=== PATIENT | female | born 1990 | race African-American/Black ===

== ENCOUNTER 2023-06-02 07:00 | Emergency (ER) | payer MEDICAID, OTHER ==
[~2023-06-02] VITALS: Ht 170.2 cm; Wt 127.5 kg
[2023-06-02 07:45] VITALS: BP 151/86; PULSE 80; RESP 18; TEMP 97.3; O2SAT 96
[2023-06-02] MEDS ORDERED: KETOROLAC TROMETH 60MG/2ML VIAL IM ONE (07:45)
[2023-06-02 07:57] LABS: Urine Bacteria FEW /hpf (None Seen); Urine Blood 1+ /uL (Negative); Urine Clarity HAZY (Clear); Urine Color Yellow (Yellow); Urine Mucus FEW (None Seen); Urine Protein, UAD 1+ (Negative); Urine Specific Gravity 1.025 (1.001-1.035); Urine Urobilinogen Normal (Negative); Urine WBC 4 /hpf (0 - 5); Urine pH 5.5 (5.0-8.0)
[2023-06-02] MEDS ORDERED: CIPR-173 PO (08:06)
[2023-06-02] MEDS ORDERED: LOPE7.5C PO (08:06)
[2023-06-02] MEDS ORDERED: IBUP-1456 PO (08:06)
== END 2023-06-02 08:09 | disposition home or self-care (01) ==
LOC: ER 07:00
DX: S39.012A Strain of muscle, fascia and tendon of lower back, initial encounter (principal); N30.00 Acute cystitis without hematuria; R19.7 Diarrhea, unspecified; I10 Essential (primary) hypertension; Z79.1 Long term (current) use of non-steroidal anti-inflammatories (NSAID); Z79.2 Long term (current) use of antibiotics; Z79.899 Other long term (current) drug therapy; Z88.0 Allergy status to penicillin; Z88.2 Allergy status to sulfonamides; Z88.8 Allergy status to other drugs, medicaments and biological substances; X58.XXXA Exposure to other specified factors, initial encounter; Y93.89 Activity, other specified; Y92.89 Other specified places as the place of occurrence of the external cause; Y99.8 Other external cause status
CPT/HCPCS: 81001; 81025; 96372; 99283; J1885